=== PATIENT | female | born 1990 | race Caucasian/White ===

== ENCOUNTER 2016-11-28 13:07 | Emergency (ER) | payer OTHER ==
--- NOTE | 2016-11-28 13:53 | PDOC ---
History of Present Illness - General Chief Complaint: Vaginal Bleeding Stated Complaint: POSSIBLE MISCARRIAGE Time Seen by Provider: 11/28/16 13:47 History Source: Patient Exam Limitations: No Limitations - History of Present Illness Initial Comments: CHIEF COMPLAINT: 26 y/o afebrile female, [id number] with LMP 11/05/[address] c/o heavy vaginal bleeding with clots today. HISTORY OF PRESENT ILLNESS: The patient also admits to lower abdominal discomfort, which is unusual for her menstrual cramps. She denies f/c, n/v/d, CP, SOB, back pain, hematuria, dysuria. The patient admits to having to use 1 super tampon per hour today. Vital signs on arrival are within normal limits. REVIEW OF SYSTEMS: GENERAL/CONSTITUTIONAL: No fever/chills. No weakness. No weight change. HEAD, EYES, EARS, NOSE AND THROAT: No change in vision. No ear pain or discharge. No sore throat. CARDIOVASCULAR: No chest pain or shortness of breath. RESPIRATORY: No cough, wheezing, or hemoptysis. GASTROINTESTINAL: +lower abd pain and heavy vaginal bleeding. No vomiting, diarrhea, constipation. GENITOURINARY: No dysuria, frequency, or change in urination. MUSCULOSKELETAL: No joint or muscle swelling or pain. No neck or back pain. SKIN: No rash or easy bruising. NEUROLOGIC: No headache, vertigo, loss of consciousness, or loss of sensation. PHYSICAL EXAM: GENERAL: The patient is awake, alert, and fully oriented, in no acute distress. SHe is very well appearing, ambulatory, in NAD or obvious discomfort. HEAD: Normal with no signs of trauma. ENT: Pupils equal, round and reactive to light, extraocular movements intact, sclera anicteric, conjunctiva clear. Neck supple. LUNGS: Clear to auscultation bilaterally. Normal excursion. No respiratory distress or use of accessory muscles. CV: RRR, S1/S2, no MRG. Cap refill < 2 sec. ABDOMEN: Soft, non-distended, TTP of suprapubic and right pelvic region. VAGINAL: Minimal red blood in vaginal vault. Right adnexal and CMT tenderness. EXTREMITIES: Normal range of motion, no edema. NEUROLOGICAL: Normal speech, normal gait. CN II-XII grossly intact. PSYCH: Normal mood, normal affect. SKIN: Warm, dry, normal turgor, no rashes or lesions noted. Past History - Past Medical History Allergies/Adverse Reactions: Allergies Allergy/AdvReac Type Severity Reaction Status Date / Time vancomycin Allergy Mild itchy Verified 11/28/16 13:15 nectarine Allergy Uncoded 11/28/16 13:15 Home Medications: Ambulatory Orders Naproxen Sodium [Naproxen Sodium ER] 500 mg PO BID #30 tablet.er 10/06/16 Ondansetron [Zofran *Odt*] 4 mg SL TID #30 od.tablet 10/06/16 Other medical history: DENIES - Surgical History Appendectomy: Yes - Reproductive History (#): 2 Para: 1 - Immunization History Immunization Up to Date: Yes - Psycho/Social/Smoking Cessation Hx Anxiety: No Suicidal Ideation: No Smoking Status: No Smoking History: Never smoked Have you smoked in the past 12 months: No Number of Cigarettes Smoked Daily: 0 Hx Alcohol Use: No Drug/Substance Use Hx: No Substance Use Type: None *Physical Exam - Vital Signs Last Vital Signs Temp Pulse Resp BP Pulse Ox 98 F 94 H 19 105/75 99 11/28/16 13:15 11/28/16 13:15 11/28/16 13:15 11/28/16 13:15 11/28/16 13:15 ED Treatment Course - LABORATORY CBC & Chemistry Diagram: 11/28/16 13:56 11/28/16 13:56 Medical Decision Making - Medical Decision Making A/P: 26 y/o afebrile female with heavy vaginal bleeding today. Plan is as follows: 1. Labs 2. UA/culture 3. beta 4. type and screen 5. Ultrasound beta - negative Labs unremarkable. Transvaginal Ultrasound IMPRESSION: In comparison to a prior exam of 03/15/16 interval development of a complex 4.4cm right ovarian cyst is noted. Correlation with follow up sonography is suggested in approximately 6 weeks to document at least partial resolution. Trace free fluid within the cul-de-sac. No doppler evidence of ovarian torsion. IUD in place. Gave the patient all of her results. Will discharge to home with instructions to have f/u ultrasound in 6 weeks. The patient verbalizes understanding of all instructions, has no further questions and is awaiting discharge. *DC/Admit/Observation/Transfer Diagnosis at time of Disposition: Cyst of ovary Qualifiers: Laterality: right Qualified Code(s): N83.20 - Unspecified ovarian cysts Menorrhagia Qualifiers: Menorrahagia type: with regular cycle Qualified Code(s): N92.0 - Excessive and frequent menstruation with regular cycle - Discharge Dispostion Disposition: HOME Condition at time of disposition: Good - Referrals Referrals: Korin Jaimes [Primary Care Provider] - Anahi Burnett MD [Staff Physician] - (Schedule appointment for follow up ultrasound in 6 weeks) - Patient Instructions Printed Discharge Instructions: DI for Ovarian Cyst, DI for Menorrhagia Additional Instructions: Discharge Instructions: -Take Motrin with food for pain if needed -Follow up either at [facility] or with referred ANTI [employer] W[employer]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 Burnett in 6 weeks for a follow up ultrasound -Return to the ER with any worsening or concerning symptoms.
[2016-11-28 14:32] LABS: EOSINOPHIL 2.8 % (0-4.5); MCH 27.4 pg (25.7-33.7); MCHC 32.7 g/dl (32.0-36.0); MEAN CELL VOLUME 83.9 fl (80-96); MEAN PLT VOLUME 10.8 fl (7.5-11.1); NEUTROPHILS 76.2 % (42.8-82.8); PLATELET COUNT 100 K/MM3 (134-434)
[2016-11-28 14:37] LABS: URINE APPEARANCE CLEAR; URINE BILIRUBIN NEGATIVE (NEGATIVE); URINE COLOR LTYELLOW; URINE GLUCOSE (UA) NEGATIVE (NEGATIVE); URINE KETONE NEGATIVE (NEGATIVE); URINE LEUK ESTERASE NEGATIVE (NEGATIVE); URINE NITRITE NEGATIVE (NEGATIVE); URINE PROTEIN NEGATIVE (NEGATIVE); URINE UROBILINOGEN 2.0 E.U/dl E.U./dl (0.2-1.0)
[2016-11-28 14:42] LABS: URINE BLOOD 1+ (NEGATIVE)
[2016-11-28 14:45] LABS: URINE MUCUS RARE; URINE RBC <1 /hpf (0-3); URINE WBC <1 /hpf (3-5)
[2016-11-28 14:59] LABS: ALBUMIN 4.1 g/dl (3.4-5.0); ANION GAP 9 (8-16); BILIRUBIN,TOTAL 0.4 mg/dL (0.2-1.0); CALCIUM 9.1 mg/dL (8.5-10.1); CO2 28 mmol/L (21-32); CREATININE 0.9 mg/dL (0.55-1.02); GLUCOSE,RANDOM 86 mg/dL (74-106); SGOT/AST 18 U/L (15-37); SGPT/ALT 15 U/L (12-78); TOT PROT 7.3 g/dl (6.4-8.2)
[2016-11-28 15:01] LABS: ALK PHOS 63 U/L (45-117)
[2016-11-28] MEDS ORDERED: IBUPROFEN 600 MG TABLET (FP) PO ONE (17:12)
[2016-11-28 17:23] VITALS: BP 110/75; PULSE 81; TEMP 98.1
== END 2016-11-28 17:23 | disposition home or self-care (01) ==
LOC: JER 13:07
DX: N92.0 Excessive and frequent menstruation with regular cycle (principal); N83.291 Other ovarian cyst, right side
CPT/HCPCS: 36415; 76830-TC; 80053; 81003; 81015; 84702; 85025; 86850; 86900; 86901; 87086; 99283-25

== ENCOUNTER 2017-01-11 12:27 | Emergency (ER) | payer OTHER ==
[2017-01-11 12:37] VITALS: BP 100/70; PULSE 111; TEMP 99.1
[2017-01-11] MEDS ORDERED: ALBUTEROL SO4 0.083% IH SOL 2.5 MG/3 ML VIAL.NEB. NEB ONE ×2 (13:09→13:12)
[2017-01-11] MEDS ORDERED: IBUPROFEN 400 MG TABLET (FP) PO ONE ×2 (13:09→13:12)
--- NOTE | 2017-01-11 13:33 | PDOC ---
History of Present Illness - General Chief Complaint: Cold Symptoms Stated Complaint: COUGH, CONGESTED, MIGRAINES Time Seen by Provider: 01/11/17 12:47 History Source: Patient Exam Limitations: No Limitations - History of Present Illness Initial Comments: 01/11/17 13:26 26 yr female with c/o sore throat cough productive phlegm, right ear pain for 3 days. no fever or chills. non smoker, history of asthma. Past History - Past Medical History Allergies/Adverse Reactions: Allergies Allergy/AdvReac Type Severity Reaction Status Date / Time vancomycin Allergy Mild itchy Verified 01/11/17 12:33 nectarine Allergy Uncoded 01/11/17 12:33 Home Medications: Ambulatory Orders Albuterol Sulfate [Proair Respiclick] 90 mcg IH Q4HWA #1 aer.[email or web address] 01/11/17 Azithromycin [Zithromax 250mg Tablets -] 250 mg PO UTDICT #6 tab 01/11/17 Other medical history: none - Surgical History Appendectomy: Yes - Reproductive History (#): 2 Para: 1 Cervical CA: No Dysfunctional Uterine Bleeding: No Ectopic : No Endometrial CA: No Polycystic Ovaries: No Therapeutic (s) & number: Yes (1) Tubal Ligation: No Spontaneous : 1 - Immunization History Immunization Up to Date: Yes - Psycho/Social/Smoking Cessation Hx Anxiety: No Suicidal Ideation: No Smoking Status: No Smoking History: Never smoked Have you smoked in the past 12 months: No Number of Cigarettes Smoked Daily: 0 Information on smoking cessation initiated: No Hx Alcohol Use: No Drug/Substance Use Hx: No Substance Use Type: None Respiratory Specific PMHX - Complaint Specific PMHX Angina: No Bronchitis: No Pneumonia: No Pulmonary Embolus: No TB (Tuberculosis): No Review of Systems - Review of Systems Able to Perform ROS?: Yes Is the patient limited [place] proficient: No Constitutional: Yes: Symptoms Reported HEENTM: Yes: Symptoms Reported Respiratory: Yes: Symptoms reported *Physical Exam - Vital Signs Last Vital Signs Temp Pulse Resp BP Pulse Ox 99.1 F 111 H 18 100/70 100 01/11/17 12:34 01/11/17 12:34 01/11/17 12:34 01/11/17 12:34 01/11/17 12:34 - Physical Exam General Appearance: Yes: Nourished, Appropriately Dressed HEENT: positive: EOMI, SAMUEL, TMs Normal, Pharynx Normal, Pharyngeal Erythema, TM Bulging (right). negative: Tonsillar Exudate, Tonsillar Erythema Neck: positive: Supple. negative: Lymphadenopathy (R), Lymphadenopathy (L) Respiratory/Chest: positive: Lungs Clear, Normal Breath Sounds, Wheezing (mild exp ) Cardiovascular: positive: Regular Rhythm, Regular Rate Gastrointestinal/Abdominal: positive: Normal Bowel Sounds, Soft Musculoskeletal: positive: Normal Inspection Extremity: positive: Normal Capillary Refill, Normal Inspection, Normal Range of Motion Integumentary: positive: Normal Color, Dry, Warm Neurologic: positive: Fully Oriented, Alert, Normal Mood/Affect, Normal Response , Motor Strength 5/5 Medical Decision Making - Medical Decision Making 01/11/17 13:28 cc: sore throat, cough no fever speaking clear sentences will r/o strep albuterol neb *DC/Admit/Observation/Transfer Diagnosis at time of Disposition: Acute upper respiratory infection - Discharge Dispostion Disposition: HOME Condition at time of disposition: Improved - Prescriptions Prescriptions: Albuterol Sulfate [Proair Respiclick] 90 mcg IH Q4HWA #1 aer.[email or web address] Azithromycin [Zithromax 250mg Tablets -] 250 mg PO UTDICT #6 tab - Patient Instructions Additional Instructions: drink pleanty of fluids increase vitamin c and zinc intake to boost immune system take the antibiotics as prescribed use inhaler as directed take motrin for pain or fever return to ER for any worsening symptoms
== END 2017-01-11 13:45 | disposition home or self-care (01) ==
LOC: JERFT 12:27
PROC: 3E0F7GC Introduction of Other Therapeutic Substance into Respiratory Tract, Via Natural or Artificial Opening (ICD-10-PCS; principal; 2017-01-11)
DX: J11.1 Influenza due to unidentified influenza virus with other respiratory manifestations (principal)
CPT/HCPCS: 84703; 87070; 87430; 94640; 99281-25

== ENCOUNTER 2017-05-20 12:12 | Emergency (ER) | payer OTHER ==
[2017-05-20 12:40] VITALS: TEMP 98.7; BMI 20.5
--- NOTE | 2017-05-20 12:48 | PDOC ---
History of Present Illness - History of Present Illness Initial Comments: 05/20/17 12:47 Ms. Guerrero is a 26 year old female with a significant past medical history of L ovarian cyst who presents to the emergency department with a 1 hour history of extreme LLQ pain that migrated to the right and eventually was her entire lower abdomen. She reports that the pain had a very sudden onset at 1120 this AM and that it left her sweating with shirt soaked. She has never had pain like this before. LMP May 03 for 2 days (usually is 4). The patient denies chest pain, shortness of breath, headache and dizziness. Denies fever, chills, nausea, vomit, diarrhea and constipation. Denies dysuria, frequency, urgency and hematuria. Allergies: Vancomycin Past surgical history:Appendectomy, facial plastic surgery Social history: Social alcohol PMD - None 05/20/17 15:48 <Seun Zavala - Last Filed: 05/20/17 18:23> <Celine Culp - Last Filed: 05/21/17 11:59> - General Chief Complaint: Pain, Acute Stated Complaint: LOWER ABDOMINAL PAIN Time Seen by Provider: 05/20/17 12:46 Past History - Surgical History Appendectomy: Yes - Reproductive History (#): 2 Para: 1 Cervical CA: No Dysfunctional Uterine Bleeding: No Ectopic : No Endometrial CA: No Polycystic Ovaries: No Therapeutic (s) & number: Yes (1) Tubal Ligation: No Spontaneous : 1 - Immunization History Immunization Up to Date: Yes - Psycho/Social/Smoking Cessation Hx Anxiety: No Suicidal Ideation: No Smoking Status: No Smoking History: Never smoked Have you smoked in the past 12 months: No Number of Cigarettes Smoked Daily: 0 Information on smoking cessation initiated: No Hx Alcohol Use: No Drug/Substance Use Hx: No Substance Use Type: None <Seun Zavala - Last Filed: 05/20/17 18:23> <Celine Culp - Last Filed: 05/21/17 11:59> - Past Medical History Allergies/Adverse Reactions: Allergies Allergy/AdvReac Type Severity Reaction Status Date / Time vancomycin Allergy Mild itchy Verified 05/20/17 12:48 nectarine Allergy Uncoded 05/20/17 12:48 Home Medications: Ambulatory Orders Ibuprofen [Motrin -] 600 mg PO PRN #21 tablet 05/20/17 Oxycodone HCl/Acetaminophen [Percocet 5-325 mg Tablet] 1 tab PO Q6H #12 tablet MDD 4 tabs 05/20/17 Review of Systems - Review of Systems Comments:: 05/20/17 12:47 GENERAL/CONSTITUTIONAL: No fever or chills. No weakness. HEAD, EYES, EARS, NOSE AND THROAT: No change in vision. No ear pain or discharge. No sore throat. CARDIOVASCULAR: No chest pain or shortness of breath RESPIRATORY: No cough, wheezing, or hemoptysis. GASTROINTESTINAL: No nausea, vomiting, diarrhea or constipation. GENITOURINARY: +Extreme left lower abdominal pain during her pain episode. Is now painful bilaterally with movement. No dysuria, frequency, or change in urination. MUSCULOSKELETAL: No joint or muscle swelling or pain. No neck or back pain. SKIN: No rash NEUROLOGIC: No headache, vertigo, loss of consciousness, or change in strength/ sensation. ENDOCRINE: No increased thirst. No abnormal weight change HEMATOLOGIC/LYMPHATIC: No anemia, easy bleeding, or history of blood clots. ALLERGIC/IMMUNOLOGIC: No hives or skin allergy. 05/20/17 15:52 <Seun Zavala - Last Filed: 05/20/17 18:23> *Physical Exam - Vital Signs Last Vital Signs Temp Pulse Resp BP Pulse Ox 98.7 F 75 18 107/69 98 05/20/17 12:36 05/20/17 12:36 05/20/17 12:36 05/20/17 12:36 05/20/17 12:36 - Physical Exam Comments: 05/20/17 12:48 GENERAL: Awake, alert, and fully oriented, in no acute distress HEAD: No signs of trauma, normocephalic, atraumatic EYES: PERRLA, EOMI, sclera anicteric, conjunctiva clear ENT: Auricles normal inspection, hearing grossly normal, nares patent, oropharynx clear without exudates. Moist mucosa NECK: Normal ROM, supple, no lymphadenopathy, JVD, or masses LUNGS: No distress, speaks full sentences, clear to auscultation bilaterally HEART: Regular rate and rhythm, normal S1 and S2, no murmurs, rubs or gallops, peripheral pulses normal and equal bilaterally. ABDOMEN: +Tender accross entire lower abdomen. normoactive bowel sounds. No guarding, no rebound. No masses EXTREMITIES: Normal inspection, Normal range of motion, no edema. No clubbing or cyanosis. NEUROLOGICAL: Cranial nerves II through XII grossly intact. Normal speech, normal gait, no focal sensorimotor deficits SKIN: Warm, Dry, normal turgor, no rashes or lesions noted. 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 No masses noted, some tenderness on R side. 05/20/17 15:53 <Seun Zavala - Last Filed: 05/20/17 18:23> - Vital Signs Last Vital Signs Temp Pulse Resp BP Pulse Ox 98.7 F 80 18 128/70 97 05/20/17 12:36 05/20/17 16:30 05/20/17 16:30 05/20/17 16:30 05/20/17 16:30 <Celine Culp - Last Filed: 05/21/17 11:59> ED Treatment Course - LABORATORY CBC & Chemistry Diagram: 05/20/17 13:25 05/20/17 13:25 <Seun Zavala - Last Filed: 05/20/17 18:23> - LABORATORY CBC & Chemistry Diagram: 05/20/17 13:25 05/20/17 13:25 - ADDITIONAL ORDERS Additional order review: 05/20/17 13:25 RBC 4.67 MCV 86.1 MCHC 32.4 RDW 13.8 MPV 11.3 H Neutrophils % 69.9 Lymphocytes % 17.0 D Monocytes % 6.7 Eosinophils % 5.4 H D Basophils % 1.0 - RADIOLOGY Radiology Studies Ordered: Category Date Time Status TRANSVAGINAL ULTRASOUND US [US] Stat Ultrasound 05/20/17 14:52 Completed - Medications Given in the ED: ED Medications Discontinued Medications Generic Name Dose Route Start Last Admin Trade Name Freq PRN Reason Stop Dose Admin Morphine Sulfate 2 mg 05/20/17 13:14 05/20/17 13:29 Morphine Injection - IVPUSH 05/20/17 13:15 2 mg ONCE ONE Administration <Celine Culp - Last Filed: 05/21/17 11:59> Medical Decision Making - Medical Decision Making 05/20/17 15:54 Ms. Guerrero presents by ambulance for an acute pain attack that she says started exactly at 1120. She is currently resting more comfortably but still with some pain. test negative. Urine cloudy with blood and urobilinogen. New complex L ovarian cyst + evidence of ruptured cyst visualized on transvaginal ultrasound. Believe this to be cause of new onset pain. Will suggest f/u with outpatient OBGYN. 05/20/17 15:55 Laboratory Results - last 24 hr 05/20/17 05/20/17 05/20/17 13:25 13:25 13:25 WBC 5.3 D RBC 4.67 Hgb 13.0 Hct 40.2 MCV 86.1 MCH 27.9 MCHC 32.4 RDW 13.8 Plt Count 101 L MPV 11.3 H Neutrophils % 69.9 Lymphocytes % 17.0 D Monocytes % 6.7 Eosinophils % 5.4 H D Basophils % 1.0 Sodium 141 Potassium 3.7 Chloride 105 Carbon Dioxide 29 Anion Gap 7 L BUN 12 Creatinine 0.8 Creat Clearance w eGFR > 60 Random Glucose 82 Calcium 8.8 Total Bilirubin 1.1 H D AST 13 L D ALT 19 D Alkaline Phosphatase 58 Total Protein 6.5 Albumin 3.7 Lipase 54 L Urine Color Yellow Urine Appearance Slcloudy Urine pH 6.0 Urine Protein 1+ H Urine Glucose (UA) Negative Urine Ketones Negative Urine Blood 1+ H Urine Nitrite Negative Urine Bilirubin Negative Urine Urobilinogen 4.0 e.u/dl H Ur Leukocyte Esterase Negative Urine RBC 2 Urine WBC 2 Ur Epithelial Cells Few Hyaline Casts 7 Urine Mucus Moderate Urine HCG, Qual Negative <Seun Zavala - Last Filed: 05/20/17 18:23> *DC/Admit/Observation/Transfer - Attestations Physician Attestion: 05/20/17 18:32 I, Dr. Seun Zavala, attest that this document has been prepared under my direction and personally reviewed by me in its entirety. I further attest, that it accurately reflects all work, treatment, procedures and medical decision -making performed by me. <Seun Zavala - Last Filed: 05/20/17 18:23> <Celine Culp - Last Filed: 05/21/17 11:59> Diagnosis at time of Disposition: Ruptured ovarian cyst - Discharge Dispostion Disposition: HOME - Prescriptions Prescriptions: Ibuprofen [Motrin -] 600 mg PO PRN #21 tablet Oxycodone HCl/Acetaminophen [Percocet 5-325 mg Tablet] 1 tab PO Q6H #12 tablet MDD 4 tabs - Referrals Referrals: Kenny Mccann MD [Staff Physician] - - Patient Instructions Printed Discharge Instructions: DI for Ovarian Cyst Additional Instructions: Please return if any new onset pain, fever, weakness, loss of color, or other concerning symptoms.
--- NOTE | 2017-05-20 12:58 | PDOC ---
Attending Attestation - Resident Resident Name: Seun Zavala - ED Attending Attestation I have performed the following: I have examined & evaluated the patient, The case was reviewed & discussed with the resident, I agree w/resident's findings & plan, Exceptions are as noted - HPI HPI: 26 yo F history prior ovarian cyst presents with abrupt onset of lower abdominal pain at 11:20 am today. She took motrin without much relief. Pain is sharp, lower abdominal, nonradiating. No associated N/V/D, dysuria, vaginal discharge. LMP approximately 2 weeks ago, was a light period lasting 2 days. - Physicial Exam PE: GENERAL: Awake, alert, and fully oriented, appears uncomfortable HEAD: No signs of trauma EYES: PERRLA, EOMI, sclera anicteric, conjunctiva clear ENT: Auricles normal inspection, hearing grossly normal, nares patent, oropharynx clear without exudates. Moist mucosa NECK: Normal ROM, supple, no lymphadenopathy, JVD, or masses LUNGS: Breath sounds equal, clear to auscultation bilaterally. No wheezes, and no crackles HEART: Regular rate and rhythm, normal S1 and S2, no murmurs, rubs or gallops ABDOMEN: Soft, +significant RLQ and LLQ tenderness, R>L. Normoactive bowel sounds. No rebound. No masses EXTREMITIES: Normal range of motion, no edema. No clubbing or cyanosis. No cords, erythema, or tenderness NEUROLOGICAL: Cranial nerves II through XII grossly intact. Normal speech, normal gait SKIN: Warm, Dry, normal turgor, no rashes or lesions noted. - Medical Decision Making Pt with abrupt onset severe lower abdominal pain without any other associated symtoms. She is approximately 2 weeks into her cycle, suggesting possible ovarian cyst vs torsion. Will obtain labs, likely sono.
[2017-05-20] MEDS ORDERED: morphine CARPU-JECT 2 MG/1 ML DISP.SYRIN IVPUSH ONE (13:14)
[2017-05-20] MEDS ORDERED: morphine CARPU-JECT 4 MG/1 ML DISP.SYRIN ONE (13:25)
[2017-05-20 13:57] LABS: EOSINOPHIL 5.4 % (0-4.5); MCH 27.9 pg (25.7-33.7); MCHC 32.4 g/dl (32.0-36.0); MEAN CELL VOLUME 86.1 fl (80-96); MEAN PLT VOLUME 11.3 fl (7.5-11.1); NEUTROPHILS 69.9 % (42.8-82.8); PLATELET COUNT 101 K/MM3 (134-434); RDW 13.8 % (11.6-15.6); WHITE BLOOD COUNT 5.3 K/mm3 (4.0-10.0)
[2017-05-20 14:01] LABS: URINE APPEARANCE SLCLOUDY; URINE BILIRUBIN NEGATIVE (NEGATIVE); URINE BLOOD 1+ (NEGATIVE); URINE COLOR YELLOW; URINE GLUCOSE (UA) NEGATIVE (NEGATIVE); URINE KETONE NEGATIVE (NEGATIVE); URINE LEUK ESTERASE NEGATIVE (NEGATIVE); URINE NITRITE NEGATIVE (NEGATIVE); URINE UROBILINOGEN 4.0 E.U/dl mg/dL (0.2-1.0)
[2017-05-20 14:09] LABS: URINE PROTEIN 1+ (NEGATIVE)
[2017-05-20 14:32] LABS: URINE HYALINE CAST 7 /lpf; URINE MUCUS MODERATE; URINE RBC 2 /hpf (0-3); URINE WBC 2 /hpf (3-5)
[2017-05-20 14:38] LABS: ALBUMIN 3.7 g/dl (3.4-5.0); ANION GAP 7 (8-16); CALCIUM 8.8 mg/dL (8.5-10.1); CO2 29 mmol/L (21-32); GLUCOSE,RANDOM 82 mg/dL (74-106)
[2017-05-20 14:45] LABS: ALK PHOS 58 U/L (45-117); BILIRUBIN,TOTAL 1.1 mg/dL (0.2-1.0); CREATININE 0.8 mg/dL (0.55-1.02); SGOT/AST 13 U/L (15-37); SGPT/ALT 19 U/L (12-78); TOT PROT 6.5 g/dl (6.4-8.2)
[2017-05-20 16:31] VITALS: BP 128/70; PULSE 80
== END 2017-05-20 18:58 | disposition home or self-care (01) ==
LOC: JER 12:12
PROC: 3E033NZ Introduction of Analgesics, Hypnotics, Sedatives into Peripheral Vein, Percutaneous Approach (ICD-10-PCS; principal; 2017-05-20)
DX: N83.292 Other ovarian cyst, left side (principal); Z88.1 Allergy status to other antibiotic agents; Z91.018 Allergy to other foods
CPT/HCPCS: 36415; 76830-TC; 80053; 81003; 81015; 83690; 84703; 85025; 87491; 87591; 96374; 99283-25

== ENCOUNTER 2018-09-18 08:40 | Emergency (ER) | payer OTHER ==
[2018-09-18 09:06] VITALS: BMI 19.1
[2018-09-18] MEDS ORDERED: SODIUM CHLORIDE 0.9% 1000 ML INFUS.BAG IV ONE (09:17)
[2018-09-18 09:33] LABS: BASO % 0.4 % (0-2.0); EOS % 1.8 % (0-4.5); HEMATOCRIT 38.4 % (32.4-45.2); HEMOGLOBIN 12.3 GM/dL (10.7-15.3); LYMPH % 10.1 % (8-40); MCH 27.1 pg (25.7-33.7); MEAN PLT VOLUME 11.1 fl (7.5-11.1); MONO % 7.1 % (3.8-10.2); NEUT % 80.6 % (42.8-82.8); PLATELET COUNT 77 K/MM3 (134-434); RBC 4.52 M/mm3 (3.60-5.2); RDW 13.1 % (11.6-15.6); WHITE BLOOD COUNT 6.4 K/mm3 (4.0-10.0)
--- NOTE | 2018-09-18 09:36 | PDOC ---
Attending Attestation - HPI HPI: 09/18/18 11:12 CC: Syncope HPI: The patient is a 27 year old female, with a significant past medical history of ovarian cysts, who presents to the emergency department s/p syncope. As per patient, last night while sleeping she was awoken from her sleep with RLQ pain. She notes throughout the day she has been feeling nausea and pain. She notes the last time she had a similar episode was when her ovarian cyst ruptured. She denies hitting her head or any head/neck trauma. Allergies: Vancomycin, nectarine Social history: Nonsmoker. Denies EtOH use and recreational drug use. Primary Care Physician: Dr. Malhotra - Physicial Exam PE: 09/18/18 11:12 Vitals: Triage vital signs reviewed General Appearance: No acute distress, well nourished, well developed Head: Atraumatic Neck: Supple; No nuchal rigidity Chest Wall: Nontender Cardiac: Regular rate and rhythm, no murmurs, no rubs, no gallops Lungs: Clear to auscultation bilateral, good air movement bilaterally +Abdomen: RLQ tenderness. Soft, nondistended, normal bowel sounds Genitourinary: Refer to resident exam. Rectal: Exam deferred Extremities: Full range of motion to all extremities, no cyanosis, clubbing, or edema Skin: Warm and dry, no rashes or lesions, no rash, no petechiae Neuro: AOX3; Cranial Nerves 2-12 grossly intact, Strength intact to all extremities, Sensation intact to all extremities Psych: Normal mood, normal affect <Laury Bales - Last Filed: 09/18/18 11:11> - Resident Resident Name: Emiliano Pahn - ED Attending Attestation I have performed the following: I have examined & evaluated the patient, The case was reviewed & discussed with the resident, I agree w/resident's findings & plan, Exceptions are as noted - Medical Decision Making 09/18/18 14:50 Well-appearing no apparent distress history examination consistent with vasovagal syncope Patient was experiencing right lower quadrant discomfort last night intermittent comes and goes became worse associated with nausea while standing walking her son to school then began to experience lightheadedness blurry vision and syncopized. She was caught and eased to the ground there was no head trauma Here in the emergency department patient had mild right lower quadrant tenderness to palpation her pelvics exam demonstrated right adnexal tenderness to palpation and she is status post an appendectomy She does have a history of ovarian cysts a transvaginal ultrasound was ordered which demonstrated a ruptured left ovarian cyst. History and examination given this information is consistent with vagal reaction to pain from ruptured ovarian cyst. Status post Toradol patient feels much better. Patient will follow up with her CORE SETTER this week. Findings, need for follow-up and strict return instructions discussed with patient. <Forest Foley - Last Filed: 09/18/18 14:59> Attestations - Attestations 09/18/18 11:13 Documentation prepared by Laury Bales, acting as emergency medical service coordinator for Forest Foley MD. <Laury Bales - Last Filed: 09/18/18 11:11>
--- NOTE | 2018-09-18 09:59 | PDOC ---
History of Present Illness <Forest Foley - Last Filed: 09/18/18 13:31> - General History Source: Patient Exam Limitations: No Limitations - History of Present Illness Initial Comments: 09/18/18 09:51 27 yo F with a hx of anemia presents to the ED s/p syncopal event at approximately 8am. She states she walked up approximately 1 block to take her son to the bus stop. There, she felt nauseous, had 4x dry heaving 09/18/18 10:01 <Emiliano Phan - Last Filed: 09/18/18 13:49> - General Chief Complaint: Syncope/Near Syncope Stated Complaint: Syncope/Near Syncope Time Seen by Provider: 09/18/18 09:16 Past History <Forest Foley - Last Filed: 09/18/18 13:31> - Past Medical History COPD: No - Surgical History Appendectomy: Yes - Reproductive History (#): 2 Para: 1 Cervical CA: No Dysfunctional Uterine Bleeding: No Ectopic : No Endometrial CA: No Polycystic Ovaries: No Therapeutic (s) & number: Yes (1) Tubal Ligation: No Spontaneous : 1 - Immunization History Immunization Up to Date: Yes - Suicide/Smoking/Psychosocial Hx Smoking Status: No Smoking History: Never smoked Have you smoked in the past 12 months: No Number of Cigarettes Smoked Daily: 0 Information on smoking cessation initiated: No Hx Alcohol Use: No Drug/Substance Use Hx: No Substance Use Type: None <Emiliano Phan - Last Filed: 09/18/18 13:49> - Past Medical History Allergies/Adverse Reactions: Allergies Allergy/AdvReac Type Severity Reaction Status Date / Time vancomycin Allergy Mild itchy Verified 09/18/18 13:22 nectarine Allergy Uncoded 09/18/18 13:22 Home Medications: Ambulatory Orders NK [No Known Home Medication] 09/18/18 Review of Systems - Review of Systems Able to Perform ROS?: Yes <Emiliano Phan - Last Filed: 09/18/18 13:49> *Physical Exam - Vital Signs Last Vital Signs Temp Pulse Resp BP Pulse Ox 61 20 98/65 100 09/18/18 08:55 09/18/18 08:55 09/18/18 08:55 09/18/18 09:27 <Forest Foley - Last Filed: 09/18/18 13:31> - Vital Signs Last Vital Signs Temp Pulse Resp BP Pulse Ox 61 20 98/65 100 09/18/18 08:55 09/18/18 08:55 09/18/18 08:55 09/18/18 09:27 <Emiliano Phan - Last Filed: 09/18/18 13:49> Moderate Sedation - Procedure Monitoring Vital Signs: Procedure Monitoring Vital Signs Temperature Pulse Rate 61 09/18/18 08:55 Respiratory Rate 20 09/18/18 08:55 Blood Pressure 98/65 09/18/18 08:55 O2 Sat by Pulse Oximetry (%) 100 09/18/18 09:27 <Forest Foley - Last Filed: 09/18/18 13:31> - Procedure Monitoring Vital Signs: Procedure Monitoring Vital Signs Temperature Pulse Rate 61 09/18/18 08:55 Respiratory Rate 20 09/18/18 08:55 Blood Pressure 98/65 09/18/18 08:55 O2 Sat by Pulse Oximetry (%) 100 09/18/18 09:27 <Emiliano Phan - Last Filed: 09/18/18 13:49> ED Treatment Course - LABORATORY CBC & Chemistry Diagram: 09/18/18 09:15 09/18/18 09:15 - ADDITIONAL ORDERS Additional order review: Laboratory Results 09/18/18 09/18/18 10:45 09:15 Sodium 141 Potassium 3.9 Chloride 106 Carbon Dioxide 29 Anion Gap 6 L BUN 12 Creatinine 0.9 Creat Clearance w eGFR > 60 Random Glucose 76 Calcium 8.7 Total Bilirubin 0.8 AST 12 L ALT 17 Alkaline Phosphatase 59 Total Protein 7.0 Albumin 4.0 Beta HCG, Quant < 1.0 Urine Color Ltyellow Urine Appearance Clear Urine pH 8.0 D Ur Specific [place] 1.012 Urine Protein Negative Urine Glucose (UA) Negative Urine Ketones Negative Urine Blood Negative Urine Nitrite Negative Urine Bilirubin Negative Urine Urobilinogen 4.0 e.u/dl H Ur Leukocyte Esterase Trace Urine WBC (Auto) 1 Urine RBC (Auto) 1 Ur Epithelial Cells Rare Hyaline Casts 1 Urine Mucus Rare 09/18/18 09:15 RBC 4.52 MCV 85.0 MCHC 32.0 RDW 13.1 MPV 11.1 Neutrophils % 80.6 Lymphocytes % 10.1 D Monocytes % 7.1 Eosinophils % 1.8 Basophils % 0.4 - Medications Given in the ED: ED Medications Discontinued Medications Generic Name Dose Route Start Last Admin Trade Name Freq PRN Reason Stop Dose Admin Sodium Chloride 1,000 ml 09/18/18 09:17 09/18/18 09:30 Normal Saline - IV 09/18/18 09:18 1,000 ml ONCE ONE Administration <Forest Foley - Last Filed: 09/18/18 13:31> - LABORATORY CBC & Chemistry Diagram: 09/18/18 09:15 09/18/18 09:15 - ADDITIONAL ORDERS Additional order review: 09/18/18 09:15 RBC 4.52 MCV 85.0 MCHC 32.0 RDW 13.1 MPV 11.1 Neutrophils % 80.6 Lymphocytes % 10.1 D Monocytes % 7.1 Eosinophils % 1.8 Basophils % 0.4 - Medications Given in the ED: ED Medications Discontinued Medications Generic Name Dose Route Start Last Admin Trade Name Freq PRN Reason Stop Dose Admin Sodium Chloride 1,000 ml 09/18/18 09:17 09/18/18 09:30 Normal Saline - IV 09/18/18 09:18 1,000 ml ONCE ONE Administration <Emiliano Phan - Last Filed: 09/18/18 13:49> *DC/Admit/Observation/Transfer - Discharge Dispostion Decision to Admit order: No <Forest Foley - Last Filed: 09/18/18 13:31> <Emiliano Phan - Last Filed: 09/18/18 13:49> Diagnosis at time of Disposition: Vaso vagal episode Ovarian cyst Qualifiers: Laterality: left Qualified Code(s): N83.202 - Unspecified ovarian cyst, left side - Discharge Dispostion Disposition: HOME - Referrals Referrals: Arturo Malhotra [Primary Care Provider] - - Patient Instructions Printed Discharge Instructions: DI for Syncope in Adults (Fainting) Additional Instructions: Take 2 tabs Aleve twice a day. Follow-up with your [facility] this week. Drink plenty fluids. Return to ED for any severe worsening symptoms or for any concerns. - Post Discharge Activity Forms/Work/School Notes: Back to Work
[2018-09-18 10:01] LABS: ALK PHOS 59 U/L (45-117); ANION GAP 6 MMOL/L (8-16); BILIRUBIN,TOTAL 0.8 mg/dL (0.2-1); BLOOD UREA NITROGEN 12 mg/dL (7-18); CALCIUM 8.7 mg/dL (8.5-10.1); CHLORIDE 106 mmol/L (98-107); CO2 29 mmol/L (21-32); CREATININE 0.9 mg/dL (0.55-1.3); GLUCOSE,RANDOM 76 mg/dL (74-106); POTASSIUM 3.9 mmol/L (3.5-5.1); SGOT/AST 12 U/L (15-37); SGPT/ALT 17 U/L (13-61); SODIUM 141 mmol/L (136-145)
--- NOTE | 2018-09-18 11:08 | EKG ---
Test Reason : Blood Pressure : / mmHG Vent. Rate : 067 BPM Atrial Rate : 067 BPM P-R Int : 138 ms QRS Dur : 076 ms QT Int : 404 ms P-R-T Axes : 069 070 065 degrees QTc Int : 426 ms NORMAL SINUS RHYTHM NORMAL ECG WHEN COMPARED WITH ECG OF 09-FEB-2014 13:03, T WAVE VARIATION Confirmed by WILLIAM HERNÁNDEZ MD ([id number]) on 09/18/2018 11:07:29 AM Referred By: Confirmed By:WILLIAM HERNÁNDEZ MD
[2018-09-18 11:12] LABS: URINE APPEARANCE CLEAR; URINE BILIRUBIN NEGATIVE (<2.0 mg/dL); URINE COLOR LTYELLOW; URINE GLUCOSE (UA) NEGATIVE (NEGATIVE); URINE KETONE NEGATIVE (NEGATIVE); URINE LEUK ESTERASE TRACE (NEGATIVE); URINE NITRITE NEGATIVE (NEGATIVE); URINE PROTEIN NEGATIVE (NEGATIVE); URINE UROBILINOGEN 4.0 E.U/dl mg/dL (0.2-1.0)
[2018-09-18 11:36] LABS: EPI CELLS RARE /HPF (FEW); URINE HYALINE CAST 1 /lpf; URINE MUCUS RARE
[2018-09-18] MEDS ORDERED: KETOROLAC TROMETHAMINE 30 MG/1 ML VIAL IVPUSH ONE (13:30)
[2018-09-18] MEDS ORDERED: KETOROLAC TROMETHAMINE 30 MG/1 ML VIAL ONE (13:32)
[2018-09-18 13:34] VITALS: BP 124/61; PULSE 72
== END 2018-09-18 13:34 | disposition home or self-care (01) ==
LOC: JER 08:40
PROC: 3E0337Z Introduction of Electrolytic and Water Balance Substance into Peripheral Vein, Percutaneous Approach (ICD-10-PCS; principal; 2018-09-18)
PROC: 3E0333Z Introduction of Anti-inflammatory into Peripheral Vein, Percutaneous Approach (ICD-10-PCS; 2018-09-18)
DX: N83.202 Unspecified ovarian cyst, left side (principal); R55 Syncope and collapse
CPT/HCPCS: 36415; 76830-TC; 80053; 81003; 81015; 84702; 85025; 87491; 87591; 87661; 93005; 93010; 96374; 99283-25; J7030

== ENCOUNTER 2018-10-14 17:10 | Inpatient (IN) | payer OTHER ==
--- NOTE | 2018-10-14 21:32 | PDOC ---
History of Present Illness - General History Source: Patient Exam Limitations: No Limitations - History of Present Illness Travel History: No Initial Comments: 10/14/18 21:32 HISTORY OF PRESENT ILLNESS: 28-year-old female past medical history of appendectomy and ovarian cyst who presents emergency Department with left pelvic pain for the past 3 days. Patient also reports having myalgias and decrease in appetite for the past 7 days. Patient reports her pelvic pain is 7/ 10 and feels like "a gassy feeling" and is constant in nature. Patient states she has had similar pelvic pain in the past which resulted in a ruptured ovarian cyst. Most recently approximately one month ago. It was at that time the patient had her last menstrual period. Patient reports having normal bowel movements with her last bowel movement 07/2018 which was a formed brown stool. She denies any vaginal discharge or vaginal bleeding. Patient is sexually active with one male partner having unprotected vaginal intercourse. Patient had negative GC and is Trichomonas testing on 09/18. No recent travel or sick contacts. PAST MEDICAL HISTORY: ovarian cysts SURGICAL HISTORY: appendectomy ALLERGIES: No known drug allergies REVIEW OF SYSTEMS General/Constitutional: Denies fever or chills. Denies weakness, weight change. HEENT: Denies change in vision. Denies ear pain or discharge. Denies sore throat. Cardiovascular: Denies chest pain or shortness of breath. Respiratory: Denies cough, wheezing, or hemoptysis. Gastrointestinal: Denies nausea, vomiting, diarrhea or constipation. Denies rectal bleeding. Genitourinary: Denies dysuria, frequency, or change in urination. left pelvic pain. Musculoskeletal: +myalgias. Denies neck or back pain. Skin and breasts: Denies rash or easy bruising. Neurologic: Denies headache, vertigo, loss of consciousness, or loss of sensation. Psychiatric: Denies depression or anxiety. Endocrine: Denies increased thirst. Denies abnormal weight change. Hematologic/Lymphatic: Denies anemia, easy bleeding, or history of blood clots. Allergic/Immunologic: Denies hives or skin allergy. Denies latex allergy. PHYSICAL EXAM General Appearance: Well-appearing, appropriately dressed. No apparent distress , no intoxication. Respiratory/Chest: Lungs CTAB. No shortness of breath, chest tenderness, respiratory distress, accessory muscle use. No crackles, rales, rhonchi, stridor , wheezing, dullness Cardiovascular: RRR. S1, S2. No JVD, murmur, bradycardia, tachycardia. Gastrointestinal/Abdominal: Normal bowel sounds. Abdomen soft, non-distended. No tenderness or rebound tenderness. No organomegaly, pulsatile mass, guarding, hernia, hepatomegaly, splenomegaly. Musculoskeletal/Extremities: Normal inspection. FROM of all extremities, normal capillary refill. Pelvis Stable. No CVA tenderness. No tenderness to extremities, pedal edema, swelling, erythema or deformity. <Eric Childs - Last Filed: 10/15/18 04:16> <Guillermina Camacho - Last Filed: 10/15/18 07:55> - General Chief Complaint: Pain Stated Complaint: ABDOMINAL PAIN Time Seen by Provider: 10/14/18 20:51 Past History - Past Medical History COPD: No - Surgical History Appendectomy: Yes - Reproductive History (#): 2 Para: 1 Cervical CA: No Dysfunctional Uterine Bleeding: No Ectopic : No Endometrial CA: No Polycystic Ovaries: No Therapeutic (s) & number: Yes (1) Tubal Ligation: No Spontaneous : 1 - Immunization History Immunization Up to Date: Yes - Suicide/Smoking/Psychosocial Hx Smoking Status: No Smoking History: Never smoked Have you smoked in the past 12 months: No Number of Cigarettes Smoked Daily: 0 Hx Alcohol Use: No Drug/Substance Use Hx: No Substance Use Type: None <Eric Childs - Last Filed: 10/15/18 04:16> <Guillermina Camacho - Last Filed: 10/15/18 07:55> - Past Medical History Allergies/Adverse Reactions: Allergies Allergy/AdvReac Type Severity Reaction Status Date / Time vancomycin Allergy Mild itchy Verified 10/14/18 17:29 nectarine Allergy Uncoded 10/14/18 17:29 Home Medications: Ambulatory Orders NK [No Known Home Medication] 09/18/18 *Physical Exam - Vital Signs Last Vital Signs Temp Pulse Resp BP Pulse Ox 98.1 F 88 18 104/67 99 10/14/18 17:26 10/14/18 17:26 10/14/18 17:26 10/14/18 17:26 10/14/18 17:26 - Physical Exam Female Pelvic Exam: positive: normal external exam, cervical os closed, CMT, adnexal tenderness (left sided) <Eric Childs - Last Filed: 10/15/18 04:16> - Vital Signs Last Vital Signs Temp Pulse Resp BP Pulse Ox 98.6 F 74 18 96/57 L 99 10/15/18 06:00 10/15/18 06:00 10/15/18 06:00 10/15/18 06:00 10/15/18 03:24 <Guillermina Camacho - Last Filed: 10/15/18 07:55> Moderate Sedation - Procedure Monitoring Vital Signs: Procedure Monitoring Vital Signs Temperature 98.1 F 10/14/18 17:26 Pulse Rate 88 10/14/18 17:26 Respiratory Rate 18 10/14/18 17:26 Blood Pressure 104/67 10/14/18 17:26 O2 Sat by Pulse Oximetry (%) 99 10/14/18 17:26 <Eric Childs - Last Filed: 10/15/18 04:16> - Procedure Monitoring Vital Signs: Procedure Monitoring Vital Signs Temperature 98.6 F 10/15/18 06:00 Pulse Rate 74 10/15/18 06:00 Respiratory Rate 18 10/15/18 06:00 Blood Pressure 96/57 L 10/15/18 06:00 O2 Sat by Pulse Oximetry (%) 99 10/15/18 03:24 <Guillermina Camacho - Last Filed: 10/15/18 07:55> Heart Score/ECG Review - ECG Intrepretation Rhythm: Regular Rhythm - [place]: Normal - P and CT Prominent R with upright T in V1 (true posterior LA): No Delta Wave(s) Present: No WPW: No - ST and T Early Repolarization: No Non Specific ST-T Wave changes: No Flattened T Waves: Yes Prolonged Q-T Interval: No - ECG Impressions Normal ECG: Yes Non-specific ST Elevation: No Ischemic Changes: Yes (inferolateral) Bradycardia: No <Guillermina Camacho - Last Filed: 10/15/18 07:55> ED Treatment Course - LABORATORY CBC & Chemistry Diagram: 10/14/18 21:36 10/14/18 21:36 - RADIOLOGY Radiology Studies Ordered: Category Date Time Status TRANSVAGINAL ULTRASOUND US [US] Stat Ultrasound 10/14/18 21:21 Ordered <Eric Childs - Last Filed: 10/15/18 04:16> - LABORATORY CBC & Chemistry Diagram: 10/14/18 21:36 10/14/18 21:36 - ADDITIONAL ORDERS Additional order review: Laboratory Results 10/15/18 10/14/18 10/14/18 01:49 21:58 21:36 Sodium 139 Potassium 3.8 Chloride 106 Carbon Dioxide 28 Anion Gap 5 L BUN 12 Creatinine 0.9 Creat Clearance w eGFR > 60 Random Glucose 106 Lactic Acid 0.6 Calcium 8.6 Total Bilirubin 0.5 AST 14 L ALT 18 Alkaline Phosphatase 63 Total Protein 7.5 Albumin 4.4 Urine Color Yellow Urine Appearance Slcloudy Urine pH 6.0 D Ur Specific [place] 1.020 Urine Protein Negative Urine Glucose (UA) Negative Urine Ketones Negative Urine Blood Negative Urine Nitrite Positive Urine Bilirubin Negative Urine Urobilinogen 4.0 e.u/dl H Ur Leukocyte Esterase Negative Urine WBC (Auto) 13 Urine RBC (Auto) 1 Ur Epithelial Cells Rare Urine Bacteria Few Urine Mucus Many Urine HCG, Qual Negative 10/14/18 21:36 RBC 4.67 MCV 83.4 MCHC 35.1 RDW 13.6 MPV 10.7 Neutrophils % 83.5 H Lymphocytes % 8.4 Monocytes % 5.9 Eosinophils % 1.6 Basophils % 0.6 - Medications Given in the ED: ED Medications Discontinued Medications Generic Name Dose Route Start Last Admin Trade Name Freq PRN Reason Stop Dose Admin Acetaminophen 975 mg 10/15/18 00:51 10/15/18 01:25 Tylenol - PO 10/15/18 00:52 975 mg ONCE ONE Administration Sodium Chloride 1,000 mls @ 1,000 mls/hr 10/15/18 01:02 10/15/18 01:24 Normal Saline - IV 10/15/18 02:01 1,000 mls/hr ASDIR STA Administration Ceftriaxone Sodium 1,000 mg/ 50 mls @ 100 mls/hr 10/15/18 01:30 10/15/18 01: 51 Dextrose IVPB 10/15/18 01:59 100 mls/hr ONCE ONE Administration Phenazopyridine HCl 200 mg 10/15/18 00:51 10/15/18 01:25 Pyridium - PO 10/15/18 00:52 200 mg ONCE ONE Administration <Guillermina Camacho - Last Filed: 10/15/18 07:55> Medical Decision Making - Medical Decision Making 10/15/18 01:12 A/P: 28-year-old woman with left pelvic pain DDx: Ovarian torsion, ovarian cysts, TOA, ectopic , UTI labs, urine including GC, TVUS 10/15/18 01:36 Ultrasound as read by imaging clinical research monitor: Normal uterus, normal homogenous endometrial complex measuring 4.5 mm Normal follicular right ovary with positive arteriovenous Doppler blood flow Normal follicular left ovary with positive arteriovenous Doppler blood flow There is some free fluid in the pelvic cul-de-sac Partially ruptured left ovarian follicles seen on 09/18 is no longer seeing on the current exam. In the interim patient has developed riders and a blood pressure of 63/42. 2 L of IV normal saline to been given. Blood cultures, influenza testing, lactic acid, IV ceftriaxone have been given. Patient to be admitted. 10/15/18 04:[address] Riddle agrees for observation under Dr. Sheldon. <Eric Childs - Last Filed: 10/15/18 04:16> *DC/Admit/Observation/Transfer - Discharge Dispostion Decision to Admit order: Yes <Eric Childs - Last Filed: 10/15/18 04:16> <Guillermina Camacho - Last Filed: 10/15/18 07:55> Diagnosis at time of Disposition: UTI (urinary tract infection) Qualifiers: Urinary tract infection type: acute cystitis Hematuria presence: without hematuria Qualified Code(s): N30.00 - Acute cystitis without hematuria - Discharge Dispostion Condition at time of disposition: Fair
[2018-10-14 21:54] LABS: BASO % 0.6 % (0-2.0); EOS % 1.6 % (0-4.5); HEMATOCRIT 38.9 % (32.4-45.2); HEMOGLOBIN 13.7 GM/dL (10.7-15.3); LYMPH % 8.4 % (8-40); MCH 29.3 pg (25.7-33.7); MCHC 35.1 g/dl (32.0-36.0); MEAN CELL VOLUME 83.4 fl (80-96); MEAN PLT VOLUME 10.7 fl (7.5-11.1); MONO % 5.9 % (3.8-10.2); NEUT % 83.5 % (42.8-82.8); RBC 4.67 M/mm3 (3.60-5.2); RDW 13.6 % (11.6-15.6); WHITE BLOOD COUNT 13.8 K/mm3 (4.0-10.0)
[2018-10-14 22:24] LABS: URINE APPEARANCE SLCLOUDY; URINE BILIRUBIN NEGATIVE (<2.0 mg/dL); URINE COLOR YELLOW; URINE GLUCOSE (UA) NEGATIVE (NEGATIVE); URINE KETONE NEGATIVE (NEGATIVE); URINE LEUK ESTERASE NEGATIVE (NEGATIVE); URINE NITRITE POSITIVE (NEGATIVE); URINE PROTEIN NEGATIVE (NEGATIVE); URINE UROBILINOGEN 4.0 E.U/dl mg/dL (0.2-1.0)
[2018-10-14 22:30] LABS: ALBUMIN 4.4 g/dl (3.4-5.0); ALK PHOS 63 U/L (45-117); ANION GAP 5 MMOL/L (8-16); BILIRUBIN,TOTAL 0.5 mg/dL (0.2-1); BLOOD UREA NITROGEN 12 mg/dL (7-18); CALCIUM 8.6 mg/dL (8.5-10.1); CHLORIDE 106 mmol/L (98-107); CO2 28 mmol/L (21-32); CREATININE 0.9 mg/dL (0.55-1.3); GLUCOSE,RANDOM 106 mg/dL (74-106); POTASSIUM 3.8 mmol/L (3.5-5.1); SGOT/AST 14 U/L (15-37); SGPT/ALT 18 U/L (13-61); SODIUM 139 mmol/L (136-145); TOT PROT 7.5 g/dl (6.4-8.2)
[2018-10-14 22:37] LABS: EPI CELLS RARE /HPF (FEW); URINE BACTERIA FEW /hpf (NONE SEEN); URINE MUCUS MANY
[2018-10-14 23:31] LABS: PLATELET COUNT 103 K/MM3 (134-434); PLATELET ESTIMATE DECREASED
[2018-10-15 00:14] LABS: HCG,QUALITATIVE URINE NEGATIVE
[2018-10-15] MEDS ORDERED: ACETAMINOPHEN 500 MG TABLET (FP) PO ONE (00:51)
[2018-10-15] MEDS ORDERED: PHENAZOPYRIDINE HCL 100 MG TABLET (FP) PO ONE (00:51)
[2018-10-15] MEDS ORDERED: SODIUM CHLORIDE 1,000 ML IV STA (01:02)
[2018-10-15] MEDS ORDERED: PHENAZOPYRIDINE HCL 100 MG TABLET (FP) ONE (01:16)
[2018-10-15] MEDS ORDERED: ACETAMINOPHEN 325 MG TABLET (FP) ONE (01:16)
[2018-10-15] MEDS ORDERED: CEFTRIAXONE 1,000 MG in DEXTROSE 5%-WATER - 50 ML IVPB ONE (01:30)
[2018-10-15] MEDS ORDERED: cefTRIAXone SODIUM 1 GM VIAL ONE (01:45)
--- NOTE | 2018-10-15 03:41 | PN ---
Teaching Attending Note Name of Resident: Rody Riddle ATTENDING PHYSICIAN STATEMENT I saw and evaluated the patient. I reviewed the resident's note and discussed the case with the resident. I agree with the resident's findings and plan as documented. SUBJECTIVE: Seen and examined; please see resident note for further historical information. Ricky, this is a 28 y/o female who has a PMH of chronic thrombocytopenia since at least 2013, ovarian cysts. She presents to the ER with a CC of lower abdominal pain similar to her previous ruptured cysts (last one on 09/18). Due to the pain she went to the ER for further treatment and monitoring. She also has a history of fainting episodes that sound like vasovagal syncope when she is going through stress; she experienced this several times in the ER during the vaginal examination and IV insertion. She felt like she was losing consciousness at the time of discharge from the ER and was found to be hypotensive to the 70/40 range and got 2 bags of saline. Medicine admission requested for observation. 10 sys ROS done and negative aside from HPI PMH and PSH reviewed FH asked and noncontributory Socially patient is a product of incest; she does have anxiety that is untreated. Denies tobacco or drug abuse; social EtOH She is not on control; only medication is multivitamin OBJECTIVE: VS, labs, imaging reviewed NAD, AAO, resting comfortably in bed RRR s1/2 no mgr Lungs CTAB Mild suprapubic pain; ND, +BS CN2-12 wnl, no fnd Anxious mood, appropriate behavior Labs show WBC 13, chronic thrombocytopenia seen again today at 103. UA with positive nitrate Chemistry unremarkable, negative lactate Pending echo EKG unchanged; on telemetry ASSESSMENT AND PLAN: Patient presents with UTI; on discharge she was found to be hypotensive from what appears to be vasovagal syncope 1) Acute Cystitis -Ceftriaxone; followup cultures; if stable tomorrow convert to PO. Uncomplicated. Trend WBC. 2) Syncope, likely vasovagal -BP dropped during DC; known vasovagal-sounding sx at baseline and did have some anxiety earlier in the ER -Check orthostatics -Monitor tele x24 hours, check echo to r/o structural abnormalities. No FNDs so likely can avoid neuroimaging unless neuro exam changes. Place on neuro checks and seizure precautions 3) Ovarian cysts -Not on control; PRN APAP -Followup US; followup with [employer] [facility] -LR@100 -PRN replete -Regular diet -As tolerated. Full Code
--- NOTE | 2018-10-15 03:42 | HP ---
CHIEF COMPLAINT:lightheadedness, suprapubic pain PCP: HISTORY OF PRESENT ILLNESS: 28 yr old woman with hx ovarian cyst (recent ovarian cyst rupture 1 month ago) presented to ED with worsening suprapubic and lower abdominal pain for past few days. 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 it felt similar to when she had her ruptured cyst. She was triaged and found to have a UTI. In the ED felt very lightheaded and found to be hypotensive, systolic 70's with mild improvement after IVF bolus with NS. She has had previous near-synpical episodes during times of stress, she felt like that when having her IV placed, and notes she often has episodes at other times which resolve with time. ER course was notable for: (1) (2) (3) Recent Travel: none PAST MEDICAL HISTORY: anemia, ovarian cysts PAST SURGICAL HISTORY: appendectomy Social History: works in retail and has one healthy son Smoking: denies Alcohol: rare Drugs: denies Family History: unknown, pt was adopted Allergies vancomycin Allergy (Mild, Verified 10/14/18 17:29) itchy nectarine Allergy (Uncoded 10/14/18 17:29) HOME MEDICATIONS: Home Medications Medication Instructions Recorded NK [No Known Home Medication] 09/18/18 REVIEW OF SYSTEMS CONSTITUTIONAL: Absent: fever, chills, diaphoresis, generalized weakness, malaise, loss of appetite, weight change HEENT: Absent: rhinorrhea, nasal congestion, throat pain, throat swelling, difficulty swallowing, mouth swelling, eye pain, visual changes CARDIOVASCULAR: Present: lightheadedness, Absent: chest pain, syncope, palpitations, irregular heart rate, peripheral edema RESPIRATORY: Absent: cough, shortness of breath, dyspnea with exertion, orthopnea, wheezing, stridor, hemoptysis GASTROINTESTINAL: Present: abdominal pain, Absent: abdominal distension, nausea, vomiting, diarrhea, constipation, melena, hematochezia GENITOURINARY: Absent: dysuria, frequency, urgency, hesitancy, hematuria, flank pain, MUSCULOSKELETAL: Absent: myalgia, arthralgia, joint swelling, back pain, neck pain SKIN: Absent: rash, itching, pallor HEMATOLOGIC/IMMUNOLOGIC: Absent: easy bleeding, easy bruising, lymphadenopathy, frequent infections ENDOCRINE: Absent: unexplained weight gain, unexplained weight loss, heat intolerance, cold intolerance NEUROLOGIC: Absent: headache, focal weakness or paresthesias, dizziness, unsteady gait, seizure, mental status changes, bladder or bowel incontinence PHYSICAL EXAMINATION Vital Signs - 24 hr 10/14/18 10/15/18 10/15/18 17:26 01:25 03:24 Temperature 98.1 F Pulse Rate 88 Pulse Rate [ 90 90 Left Radial] Respiratory 18 16 18 Rate Blood Pressure 104/67 Blood Pressure 98/64 93/50 L [Left Arm] O2 Sat by Pulse 99 99 99 Oximetry (%) GENERAL: Awake, alert, and fully oriented, in no acute distress. HEAD: Normal with no signs of trauma. EYES: Pupils equal, round and reactive to light, extraocular movements intact, sclera anicteric, conjunctiva clear. No lid lag. EARS, NOSE, THROAT: Ears normal, nares patent, oropharynx clear without exudates. Moist mucous membranes. NECK: Normal range of motion, supple without lymphadenopathy, JVD, or masses. LUNGS: Breath sounds equal, clear to auscultation bilaterally. No wheezes, and no crackles. No accessory muscle use. HEART: Regular rate and rhythm, normal S1 and S2 without murmur, rub or gallop. ABDOMEN: Soft, +tender in suprapubic and lower abdomen, not distended, normoactive bowel sounds, no guarding, no rebound, no masses. No hepatomegaly or splenomegaly. MUSCULOSKELETAL: Normal range of motion at all joints. No bony deformities or tenderness. No CVA tenderness. UPPER EXTREMITIES: 2+ radial pulses, warm, well-perfused. No cyanosis. No clubbing. No peripheral edema. LOWER EXTREMITIES: 2+ DP pulses, warm, well-perfused. No calf tenderness. No peripheral edema. NEUROLOGICAL: Cranial nerves II-XII intact. Normal speech. Normal gait. PSYCHIATRIC: Cooperative. Good eye contact. Appropriate mood and affect. SKIN: Warm, dry, normal turgor, no rashes or lesions noted, normal capillary refill. Laboratory Results - last 24 hr 10/14/18 10/14/18 10/14/18 21:36 21:36 21:58 WBC 13.8 H RBC 4.67 Hgb 13.7 Hct 38.9 MCV 83.4 MCH 29.3 MCHC 35.1 RDW 13.6 Plt Count 103 L D MPV 10.7 Absolute Neuts (auto) 11.5 H Neutrophils % 83.5 H Lymphocytes % 8.4 Monocytes % 5.9 Eosinophils % 1.6 Basophils % 0.6 Nucleated RBC % 0 Platelet Estimate Decreased Platelet Comment No clumping noted Sodium 139 Potassium 3.8 Chloride 106 Carbon Dioxide 28 Anion Gap 5 L BUN 12 Creatinine 0.9 Creat Clearance w eGFR > 60 Random Glucose 106 Lactic Acid Calcium 8.6 Total Bilirubin 0.5 AST 14 L ALT 18 Alkaline Phosphatase 63 Total Protein 7.5 Albumin 4.4 Urine Color Yellow Urine Appearance Slcloudy Urine pH 6.0 D Ur Specific [place] 1.020 Urine Protein Negative Urine Glucose (UA) Negative Urine Ketones Negative Urine Blood Negative Urine Nitrite Positive Urine Bilirubin Negative Urine Urobilinogen 4.0 e.u/dl H Ur Leukocyte Esterase Negative Urine WBC (Auto) 13 Urine RBC (Auto) 1 Ur Epithelial Cells Rare Urine Bacteria Few Urine Mucus Many Urine HCG, Qual Negative Influenza A (Rapid) Influenza B (Rapid) 10/15/18 10/15/18 01:49 01:49 WBC RBC Hgb Hct MCV MCH MCHC RDW Plt Count MPV Absolute Neuts (auto) Neutrophils % Lymphocytes % Monocytes % Eosinophils % Basophils % Nucleated RBC % Platelet Estimate Platelet Comment Sodium Potassium Chloride Carbon Dioxide Anion Gap BUN Creatinine Creat Clearance w eGFR Random Glucose Lactic Acid 0.6 Calcium Total Bilirubin AST ALT Alkaline Phosphatase Total Protein Albumin Urine Color Urine Appearance Urine pH Ur Specific [place] Urine Protein Urine Glucose (UA) Urine Ketones Urine Blood Urine Nitrite Urine Bilirubin Urine Urobilinogen Ur Leukocyte Esterase Urine WBC (Auto) Urine RBC (Auto) Ur Epithelial Cells Urine Bacteria Urine Mucus Urine HCG, Qual Influenza A (Rapid) Negative Influenza B (Rapid) Negative ASSESSMENT/PLAN: 28 yr old woman with a hx of ovarian cysts presents with suprapubic pain likely due to UTI, being monitored for hypotension. Hypotension, hx of pre-syncope - likely vasovagal in nature, continue IVF hydration - recommend checking orthostatics and echo to r/o cardiac cause of events if symptoms do not improve - monitor on tele to r/o arrythmia - neuro checks #UTI - acute cystitis - started on ceftriaxone, no previous culture hx - Gono/chlamy negative #Ovarian cysts - tranvaginal us as per Ed negative for acute rupture Diet: regular activity: as tolerated, assist due to concern for syncope DVT: scd's, encourge ambulation dispo: if improvement on IVF, and no events on cardiac monitoring, can likely dc on oral abx for cystitis offered HIV and hepatitis testing, pt accepted full code Visit type - Emergency Visit Emergency Visit: Yes ED Registration Date: 10/15/18 Care time: The patient presented to the Emergency Department on the above date and was hospitalized for further evaluation of their emergent condition. - New Patient This patient is new to me today: Yes Date on this admission: 10/15/18 - Critical Care Critical Care patient: No
[2018-10-15] MEDS: SODIUM CHLORIDE 1,000 ML IV SCH (03:52)
--- NOTE | 2018-10-15 11:26 | EKG ---
Test Reason : Blood Pressure : / mmHG Vent. Rate : 084 BPM Atrial Rate : 084 BPM P-R Int : 128 ms QRS Dur : 082 ms QT Int : 398 ms P-R-T Axes : -17 -11 -14 degrees QTc Int : 470 ms NORMAL SINUS RHYTHM WITH SINUS ARRHYTHMIA NONSPECIFIC T WAVE ABNORMALITY PROLONGED QT ABNORMAL ECG WHEN COMPARED WITH ECG OF 18-SEP-2018 09:07, QUESTIONABLE CHANGE IN QRS AXIS NONSPECIFIC T WAVE ABNORMALITY NOW EVIDENT IN ANTERIOR LEADS Confirmed by SAJI VALADEZ MD ([id number]) on 10/15/2018 11:25:44 AM Referred By: Confirmed By:SAJI VALADEZ MD
--- NOTE | 2018-10-15 11:43 | PN ---
Progress Note (short form) - Note Progress Note: Subjective: no fever or chills. feels a little better . had lower abd pain since yesterday with nausea and poor po intake. had similar sx few days ago and came to ER, TV US was done to find ruptured L ovarian follicle. denies flank pain. sexually active , no h/o STDs Objective: Vital Signs: Last Vital Signs Temp Pulse Resp BP Pulse Ox 98.6 F 74 18 96/57 L 99 10/15/18 06:00 10/15/18 06:00 10/15/18 06:00 10/15/18 06:00 10/15/18 03:24 Laboratory Results - last 24 hr 10/14/18 10/14/18 10/14/18 21:36 21:36 21:58 WBC 13.8 H RBC 4.67 Hgb 13.7 Hct 38.9 MCV 83.4 MCH 29.3 MCHC 35.1 RDW 13.6 Plt Count 103 L D MPV 10.7 Absolute Neuts (auto) 11.5 H Neutrophils % 83.5 H Lymphocytes % 8.4 Monocytes % 5.9 Eosinophils % 1.6 Basophils % 0.6 Nucleated RBC % 0 Platelet Estimate Decreased Platelet Comment No clumping noted Sodium 139 Potassium 3.8 Chloride 106 Carbon Dioxide 28 Anion Gap 5 L BUN 12 Creatinine 0.9 Creat Clearance w eGFR > 60 Random Glucose 106 Lactic Acid Calcium 8.6 Total Bilirubin 0.5 AST 14 L ALT 18 Alkaline Phosphatase 63 Total Protein 7.5 Albumin 4.4 Urine Color Yellow Urine Appearance Slcloudy Urine pH 6.0 D Ur Specific [place] 1.020 Urine Protein Negative Urine Glucose (UA) Negative Urine Ketones Negative Urine Blood Negative Urine Nitrite Positive Urine Bilirubin Negative Urine Urobilinogen 4.0 e.u/dl H Ur Leukocyte Esterase Negative Urine WBC (Auto) 13 Urine RBC (Auto) 1 Ur Epithelial Cells Rare Urine Bacteria Few Urine Mucus Many Urine HCG, Qual Negative Influenza A (Rapid) Influenza B (Rapid) 10/15/18 10/15/18 01:49 01:49 WBC RBC Hgb Hct MCV MCH MCHC RDW Plt Count MPV Absolute Neuts (auto) Neutrophils % Lymphocytes % Monocytes % Eosinophils % Basophils % Nucleated RBC % Platelet Estimate Platelet Comment Sodium Potassium Chloride Carbon Dioxide Anion Gap BUN Creatinine Creat Clearance w eGFR Random Glucose Lactic Acid 0.6 Calcium Total Bilirubin AST ALT Alkaline Phosphatase Total Protein Albumin Urine Color Urine Appearance Urine pH Ur Specific [place] Urine Protein Urine Glucose (UA) Urine Ketones Urine Blood Urine Nitrite Urine Bilirubin Urine Urobilinogen Ur Leukocyte Esterase Urine WBC (Auto) Urine RBC (Auto) Ur Epithelial Cells Urine Bacteria Urine Mucus Urine HCG, Qual Influenza A (Rapid) Negative Influenza B (Rapid) Negative Physical Exam: NAD , looks ill. dry MM Cv: RRR Lungs: CTAB ext : no edema Abd: soft, ND, TTP in suprapubic area , RLQ and LLQ Imaging: TV US reviewed this admission and last ER visit . Assessment/Plan: 28 y/o lady wtih no significant PMH who presented with abd pain . she was found to have UTI 1- Complicated UTI: with leukocytosis. - IVF - cont ceftriaxone day 1 - follow urine cx. - No , no ovarian cyst or torsion on US. sx don't go with appendicitis - follow GC testing. Visit type - Emergency Visit Emergency Visit: Yes ED Registration Date: 10/15/18 Care time: The patient presented to the Emergency Department on the above date and was hospitalized for further evaluation of their emergent condition. - New Patient This patient is new to me today: Yes Date on this admission: 10/15/18 - Critical Care Critical Care patient: No
[2018-10-15] MEDS ORDERED: CEFTRIAXONE 1 GM in DEXTROSE 5%-WATER - 50 ML IVPB SCH (22:00)
[2018-10-15] MEDS ORDERED: IBUPROFEN 600 MG TABLET (FP) PO ONE (23:01)
[2018-10-16] MEDS: SODIUM CHLORIDE 1,000 ML IV SCH ×2 (00:23→07:13)
[2018-10-16] MEDS ORDERED: RANITIDINE HCL 150 MG TABLET (FP) PO ONE (00:59)
[2018-10-16 06:18] LABS: BASO % 0.5 % (0-2.0); EOS % 3.3 % (0-4.5); HEMATOCRIT 32.4 % (32.4-45.2); HEMOGLOBIN 10.4 GM/dL (10.7-15.3); LYMPH % 22.7 % (8-40); MCH 27.5 pg (25.7-33.7); MEAN CELL VOLUME 85.9 fl (80-96); MEAN PLT VOLUME 10.7 fl (7.5-11.1); MONO % 10.7 % (3.8-10.2); NEUT % 62.8 % (42.8-82.8); PLATELET COUNT 56 K/MM3 (134-434); RBC 3.77 M/mm3 (3.60-5.2); RDW 13.7 % (11.6-15.6); WHITE BLOOD COUNT 4.5 K/mm3 (4.0-10.0)
[2018-10-16] MEDS ORDERED: PNEUMOCOCCAL 23 VACCINE 0.5 ML VIAL IM ONE (07:47)
[2018-10-16 08:18] VITALS: BP 102/65; PULSE 70; TEMP 98.2
--- NOTE | 2018-10-16 08:29 | PN ---
Teaching Attending Note Name of Resident: Madison Summers ATTENDING PHYSICIAN STATEMENT I saw and evaluated the patient. I reviewed the resident's note and discussed the case with the resident. I agree with the resident's findings and plan as documented. SUBJECTIVE: No fever or chills . feels much better . no abd pain but feels gassy OBJECTIVE: NAD , looks better Cv: RRR Lungs: CTAB Ext: no edema Abd: soft, ND,mild tenderness in suprapubic area. Assessment/Plan: 28 y/o lady wtih no significant PMH who presented with abd pain . she was found to have UTI 1- Complicated UTI: symptomatically improved and WBC normalized. -dc IVF - dc on keflex for 8 more days to complete a course of 10 days - pt told to have her PCP follow GC testing. - will call patient for U cx results if abx adjustment is needed - referred to resident clinic dc home .d/w pt
[2018-10-16 13:15] LABS: HEP.C VIRUS AB <0.1 s/co ratio (0.0-0.9)
--- NOTE | 2018-10-16 14:49 | DS ---
Physical Exam: SUBJECTIVE: Patient seen and examined OBJECTIVE: Vital Signs Period Temp Pulse Resp BP Sys/Gary Pulse Ox Last 24 Hr 97.9 F-98.2 F 68-73 16-18 90-122/58-74 100-100 PHYSICAL EXAM GENERAL: The patient is awake, alert, and fully oriented, in no acute distress. HEAD: Normal with no signs of trauma. EYES: PERRL, extraocular movements intact, sclera anicteric, conjunctiva clear. ENT: Ears normal, nares patent, oropharynx clear without exudates, moist mucous membranes. NECK: Trachea midline, full range of motion, supple. LUNGS: Breath sounds equal, clear to auscultation bilaterally, no wheezes, no crackles, no accessory muscle use. HEART: Regular rate and rhythm, S1, S2 without murmur, rub or gallop. ABDOMEN: Soft, nontender, nondistended, normoactive bowel sounds, no guarding, no rebound, no hepatosplenomegaly, no masses. EXTREMITIES: 2+ pulses, warm, well-perfused, no edema. NEUROLOGICAL: Cranial nerves II through XII grossly intact. Normal speech, gait not observed. PSYCH: Normal mood, normal affect. SKIN: Warm, dry, normal turgor, no rashes or lesions noted. LABS Laboratory Results - last 24 hr 10/15/18 10/15/18 10/16/18 05:30 05:30 05:30 WBC 4.5 RBC 3.77 Hgb 10.4 L Hct 32.4 D MCV 85.9 MCH 27.5 MCHC 32.0 RDW 13.7 Plt Count 56 L D MPV 10.7 Absolute Neuts (auto) 2.8 Neutrophils % 62.8 D Lymphocytes % 22.7 D Monocytes % 10.7 H D Eosinophils % 3.3 D Basophils % 0.5 Nucleated RBC % 0 Hepatitis A IgM Ab Negative Hep Bs Antigen Negative Hep B Core IgM Ab Negative Hepatitis C Antibody <0.1 HIV Genotype Non reactive HOSPITAL COURSE: Date of Admission:10/15/18 28F w/ pmhx of anemia and hx of ruptured ovarian cysts presented to the hospital with complaints of acute suprapubic pain with hypotension and found to have a UTI. Pt was subsequently admitted to [facility] to monitor for hypotension. During her stay, she was treated with Ceftriaxone for the UTI and fortunately had no cardiac events. Transvaginal U/S was done that did not show acute pathology. Urine culture, and gonorrhead/chlamydia work up was done. Pt's symptoms improved throughout the duration of the hospital stay. She was discharged home with instructions to continue taking Keflex for her UTI and to follow up with her PCP within 1 week. Date of Discharge: 10/16/18 Minutes to complete discharge: 36 Discharge Summary Reason For Visit: URINARY TRACT INFECTION Condition: Improved - Instructions Diet, Activity, Other Instructions: You were seen in the hospital for complaints of abdominal pain and syncope. In the hospital, you were found to have a complicated UTI. You were given antibiotics and monitored overnight. Your symptoms improved and you were discharged home. MEDICAL RECOMMENDATIONS Please take Keflex 500 mg every 12 hours for 8 days. You may start taking this medication tomorrow, 10/17/17. CONSULT RECOMMENDATIONS Please follow up with your primary care physician within 1 week. If you experience worsening abdominal pain, persistent pain while urinating/ blood in your urine, fever/chills, nausea/vomiting, chest pain, shortness of breath, please proceed to your nearest emergency room immediately. we have referred you to Dr. Edin ochoa . final urine culture to be followed by us and will call you for any change in antibiotics you were given Dr. Jesus clinic number . please follow please make sure that your doctor follows the results of chlamydia and gonorrhea . they are still pending. Referrals: Markie Jesus MD [Staff Physician] - Disposition: HOME - Home Medications Comprehensive Discharge Medication List: Ambulatory Orders Cephalexin [Keflex] 500 mg PO Q12H #16 capsule 10/16/18 This patient is new to me today: Yes Date on this admission: 10/17/18 Emergency Visit: Yes ED Registration Date: 10/15/18 Care time: The patient presented to the Emergency Department on the above date and was hospitalized for further evaluation of their emergent condition. Critical Care patient: No - Discharge Referral Referred to [facility] Med [facility] No
== END 2018-10-16 08:40 | disposition home or self-care (01) | DRG 463 ==
LOC: JER 17:10 → JERBED 10-15 04:16 → OBSVTOIN 10-15 11:44
PROVIDERS: ADMIT Internal Medicine; ATTEND Internal Medicine
DX: N39.0 Urinary tract infection, site not specified (principal); I95.9 Hypotension, unspecified; R55 Syncope and collapse; N83.02 Follicular cyst of left ovary; D72.829 Elevated white blood cell count, unspecified; D69.6 Thrombocytopenia, unspecified
CPT/HCPCS: 36415; 71045-TC-FY; 76830-TC; 80053; 80074; 81003; 81015; 83605; 84703; 85025; 87040; 87086; 87186; 87389; 87491; 87522; 87591; 87804; 93005; 93010; 99284-25; G0378; J7030

== ENCOUNTER 2021-07-30 10:50 | Emergency (ER) | payer OTHER ==
[2021-07-30 10:55] VITALS: BMI 22.6
[2021-07-30] MEDS ORDERED: ACETAMINOPHEN INJECTION 100 ML IVPB ONE (11:31)
[2021-07-30] MEDS ORDERED: SODIUM CHLORIDE 0.9% 500 ML INFUS.BAG IV ONE ×2 (12:17→14:59)
[2021-07-30] MEDS ORDERED: ACETAMINOPHEN 1000 MG/100 ML VIAL (NON FORMULARY) IVPB ONE (12:32)
[2021-07-30 13:00] LABS: BASO % 0.2 % (0-2.0); HEMATOCRIT 39.7 % (32.4-45.2); HEMOGLOBIN 13.3 GM/dL (10.7-15.3); LYMPH % 3.2 % (8-40); MCH 28.2 pg (25.7-33.7); MCHC 33.6 g/dl (32.0-36.0); MEAN CELL VOLUME 84.2 fl (80-96); MEAN PLT VOLUME 11.2 fl (7.5-11.1); NEUT % 89.6 % (42.8-82.8); PLATELET COUNT 71 10^3/uL (134-434); RBC 4.72 M/mm3 (3.60-5.2); RDW 13.7 % (11.6-15.6); WHITE BLOOD COUNT 6.7 K/mm3 (4.0-10.0)
[2021-07-30 13:25] LABS: CHLORIDE 106 mmol/L (98-107); SODIUM 139 mmol/L (136-145)
[2021-07-30 13:29] LABS: ANION GAP 8 MMOL/L (8-16); CALCIUM 8.7 mg/dL (8.5-10.1); CO2 24 mmol/L (21-32)
[2021-07-30 13:30] LABS: ALBUMIN 3.7 g/dl (3.4-5.0); BLOOD UREA NITROGEN 9.6 mg/dL (7-18)
[2021-07-30 13:33] LABS: CREATININE 0.8 mg/dL (0.55-1.3); SGOT/AST 12 U/L (15-37); SGPT/ALT 15 U/L (13-61)
[2021-07-30 13:34] LABS: BILIRUBIN,TOTAL 1.3 mg/dL (0.2-1); TOT PROT 7.2 g/dl (6.4-8.2)
[2021-07-30 13:35] LABS: ALK PHOS 69 U/L (45-117)
[2021-07-30 14:05] LABS: GLUCOSE,RANDOM 105 mg/dL (74-106)
[2021-07-30 14:41] LABS: EPI CELLS 23 /uL (0-25.1); HYALINE CASTS 5 /uL (0-3.1); URINE APPEARANCE CLEAR; URINE BACTERIA 340 /uL (0-1359); URINE BILIRUBIN NEGATIVE (NEGATIVE); URINE COLOR YELLOW; URINE GLUCOSE (UA) NEGATIVE (NEGATIVE); URINE KETONE NEGATIVE (NEGATIVE); URINE LEUK ESTERASE NEGATIVE (NEGATIVE); URINE NITRITE NEGATIVE (NEGATIVE); URINE PROTEIN 1+ (NEGATIVE); URINE RBC 10 /uL (0-23.9); URINE WBC 21 /uL (0-25.8)
[2021-07-30 15:51] VITALS: BP 98/56; PULSE 72; TEMP 98.1
== END 2021-07-30 17:06 | disposition home or self-care (01) ==
LOC: JER 10:50
PROC: 3E033NZ Introduction of Analgesics, Hypnotics, Sedatives into Peripheral Vein, Percutaneous Approach (ICD-10-PCS; principal; 2021-07-30)
DX: N39.0 Urinary tract infection, site not specified (principal); R68.83 Chills (without fever)
CPT/HCPCS: 36415; 76830-TC; 80053; 81003; 82550; 84484; 84703; 85025; 87040; 87086; 87491; 87591; 87804; 93005; 93010; 99284-25; C9803; J0131; U0003; U0005

== ENCOUNTER 2022-12-27 08:43 | Emergency (ER) | payer OTHER ==
[2022-12-27 08:51] VITALS: BP 102/64; PULSE 78; RESP 18; TEMP 97.9; BMI 21.9
[2022-12-27] MEDS ORDERED: DEXAMETHASONE SOD PHOSPHATE 10 MG/1 ML VIAL IVPUSH ONE (09:42)
[2022-12-27] MEDS ORDERED: ALBUTEROL SO4 2.5/IPRATROPIUM 0.5 INH SOL 3 ML VIAL.NEB. NEB ONE ×2 (09:47→09:48)
[2022-12-27] MEDS ORDERED: DEXAMETHASONE SOD PHOSPHATE 10 MG/1 ML VIAL ONE (09:48)
[2022-12-27] MEDS: RACEPINEPHRINE IH SOL 2.25% 11.25 MG/0.5 ML VIAL IH ONE ×2 (10:13→12:22)
[2022-12-27 10:14] LABS: BASO % 0.6 % (0-2.0); EOS % 4.1 % (0-4.5); HEMATOCRIT 36.7 % (32.4-45.2); HEMOGLOBIN 12.1 GM/dL (10.7-15.3); LYMPH % 15.8 % (8-40); MCH 28.3 pg (25.7-33.7); MCHC 32.9 g/dl (32.0-36.0); MEAN CELL VOLUME 86.1 fl (80-96); MEAN PLT VOLUME 11.7 fl (7.5-11.1); MONO % 7.8 % (3.8-10.2); NEUT % 71.7 % (42.8-82.8); PLATELET COUNT 104 10^3/uL (134-434); RBC 4.26 M/mm3 (3.60-5.2); RDW 13.1 % (11.6-15.6); WHITE BLOOD COUNT 4.6 K/mm3 (4.0-10.0)
[2022-12-27 10:33] LABS: ALBUMIN 3.7 g/dl (3.4-5.0)
[2022-12-27 10:34] LABS: BLOOD UREA NITROGEN 17.6 mg/dL (7-18); CALCIUM 8.8 mg/dL (8.5-10.1)
[2022-12-27 10:37] LABS: CREATININE 0.7 mg/dL (0.55-1.3)
[2022-12-27 10:38] LABS: BILIRUBIN,TOTAL 0.3 mg/dL (0.2-1); TOT PROT 6.6 g/dl (6.4-8.2)
[2022-12-27] MEDS: ALBUTEROL SO4 2.5/IPRATROPIUM 0.5 INH SOL 3 ML VIAL.NEB. NEB SCH ×2 (11:11→13:10)
[2022-12-27] MEDS ORDERED: KETOROLAC TROMETHAMINE 15 MG/ML VIAL ONE (12:22)
[2022-12-27] MEDS: KETOROLAC TROMETHAMINE 15 MG/ML VIAL IVPUSH ONE ×2 (13:10→13:14)
== END 2022-12-27 16:36 | disposition home or self-care (01) ==
LOC: JERFT 08:43
PROC: 3E0F7GC Introduction of Other Therapeutic Substance into Respiratory Tract, Via Natural or Artificial Opening (ICD-10-PCS; principal; 2022-12-27)
PROC: 3E0F7GC Introduction of Other Therapeutic Substance into Respiratory Tract, Via Natural or Artificial Opening (ICD-10-PCS; 2022-12-27)
PROC: 3E033GC Introduction of Other Therapeutic Substance into Peripheral Vein, Percutaneous Approach (ICD-10-PCS; 2022-12-27)
DX: J45.909 Unspecified asthma, uncomplicated (principal); J02.9 Acute pharyngitis, unspecified; E04.1 Nontoxic single thyroid nodule
CPT/HCPCS: 36415; 70491-TC; 71046-TC-FY; 80053; 84703; 85025; 87040; 99285-25; J1100; Q9967

== ENCOUNTER 2023-01-23 16:11 | Emergency (ER) | payer OTHER ==
[2023-01-23 16:18] VITALS: BP 115/76; PULSE 76; RESP 18; TEMP 98; BMI 21.8
[2023-01-23] MEDS ORDERED: ACETAMINOPHEN 325 MG TABLET (FP) PO ONE (16:33)
[2023-01-23] MEDS ORDERED: ACETAMINOPHEN 325 MG TABLET (FP) ONE (16:44)
== END 2023-01-23 17:38 | disposition home or self-care (01) ==
LOC: JERFT 16:11
DX: S40.012A Contusion of left shoulder, initial encounter (principal); M25.512 Pain in left shoulder; R20.2 Paresthesia of skin; V49.40XA Driver injured in collision with unspecified motor vehicles in traffic accident, initial encounter; Y93.I9 Activity, other involving external motion
CPT/HCPCS: 73030-TC-LT-FY; 99283-25

== ENCOUNTER 2023-06-22 11:43 | Emergency (ER) | payer OTHER ==
[2023-06-22 12:01] VITALS: BP 109/53; PULSE 85; RESP 16; TEMP 99.2; BMI 23.1
== END 2023-06-22 14:54 | disposition home or self-care (01) ==
LOC: JERFT 11:43
DX: R50.9 Fever, unspecified (principal); J02.9 Acute pharyngitis, unspecified; R09.81 Nasal congestion; Z20.822 Contact with and (suspected) exposure to COVID-19
CPT/HCPCS: 0241U-QW; 87651; 99283-25

== ENCOUNTER 2023-09-06 16:23 | Emergency (ER) | payer OTHER ==
[2023-09-06 16:39] VITALS: BMI 24.0
[2023-09-06] MEDS ORDERED: ACETAMINOPHEN 500 MG TABLET (FP) PO ONE (17:21)
[2023-09-06] MEDS ORDERED: ACETAMINOPHEN 325 MG TABLET (FP) ONE (17:59)
[2023-09-06] MEDS ORDERED: SODIUM CHLORIDE 0.9% 1000 ML INFUS.BAG IV ONE (18:09)
[2023-09-06 18:36] LABS: BASO % 0.7 % (0-2.0); EOS % 1.2 % (0-4.5); HEMOGLOBIN 13.6 GM/dL (10.7-15.3); LYMPH % 18.1 % (8-40); MCH 28.1 pg (25.7-33.7); MCHC 33.2 g/dl (32.0-36.0); MEAN CELL VOLUME 84.6 fl (80-96); MEAN PLT VOLUME 10.9 fl (7.5-11.1); MONO % 7.8 % (3.8-10.2); NEUT % 72.2 % (42.8-82.8); PLATELET COUNT 125 10^3/uL (134-434); RBC 4.84 M/mm3 (3.60-5.2); RDW 13.4 % (11.6-15.6); WHITE BLOOD COUNT 6.7 K/mm3 (4.0-10.0)
[2023-09-06 18:45] LABS: POTASSIUM 4.3 mmol/L (3.5-5.1)
[2023-09-06 18:46] LABS: CALCIUM 9.3 mg/dL (8.5-10.1)
[2023-09-06 18:47] LABS: ALBUMIN 4.2 g/dl (3.4-5.0); BLOOD UREA NITROGEN 11.1 mg/dL (7-18)
[2023-09-06 18:50] LABS: CREATININE 0.8 mg/dL (0.55-1.3)
[2023-09-06 18:52] LABS: BILIRUBIN,TOTAL 0.5 mg/dL (0.2-1); TOT PROT 7.5 g/dl (6.4-8.2)
[2023-09-06 18:53] LABS: INR 1.1 (0.83-1.09); PROTHROMBIN TIME (PATIENT) 12.8 SEC (9.7-13.0)
[2023-09-06 18:56] LABS: ACTIVATED PTT 27.1 SECONDS (25.2-36.5)
[2023-09-06] MEDS ORDERED: oxyCODONE HCL 5 MG TABLET PO ONE (20:49)
[2023-09-06] MEDS ORDERED: oxyCODONE HCL 5 MG TABLET ONE (20:54)
[2023-09-06 22:02] LABS: PH,URINE 5.5 (5.0-8.0); URINE APPEARANCE CLEAR; URINE BILIRUBIN NEGATIVE (NEGATIVE); URINE COLOR YELLOW; URINE GLUCOSE (UA) NEGATIVE (NEGATIVE); URINE KETONE 15 mg/dl (NEGATIVE)
[2023-09-06 22:03] LABS: URINE LEUK ESTERASE NEGATIVE (NEGATIVE); URINE NITRITE NEGATIVE (NEGATIVE); URINE PROTEIN NEGATIVE (NEGATIVE)
[2023-09-06 22:48] VITALS: BP 91/50; PULSE 75; RESP 20; TEMP 97.7
== END 2023-09-06 22:49 | disposition home or self-care (01) ==
LOC: JER 16:23
DX: S30.810A Abrasion of lower back and pelvis, initial encounter (principal); S50.02XA Contusion of left elbow, initial encounter; M25.512 Pain in left shoulder; M54.9 Dorsalgia, unspecified; M25.522 Pain in left elbow; R07.89 Other chest pain; W01.0XXA Fall on same level from slipping, tripping and stumbling without subsequent striking against object, initial encounter; Y93.01 Activity, walking, marching and hiking; Y92.481 Parking lot as the place of occurrence of the external cause
CPT/HCPCS: 36415; 70450-TC; 71046-TC-FY; 71260-TC; 72125-TC; 72128-TC; 72131-TC; 73030-TC-LT-FY; 73070-TC-LT-FY; 74177-TC; 80053; 81003; 84703; 85025; 85610; 85730; 86850; 86900; 86901; 93005; 93010; 99285-25; Q9967

== ENCOUNTER 2024-08-23 10:30 | Emergency (ER) | payer OTHER ==
[2024-08-23 10:55] VITALS: BP 102/69; PULSE 95; RESP 17; TEMP 98.7; BMI 22.3
[2024-08-23] MEDS ORDERED: ACETAMINOPHEN 500 MG TABLET (FP) ONE (11:54)
[2024-08-23] MEDS ORDERED: ALBUTEROL SO4 2.5/IPRATROPIUM 0.5 INH SOL 3 ML VIAL.NEB. NEB ONE ×2 (12:00→12:57)
[2024-08-23] MEDS: ALBUTEROL SO4 2.5/IPRATROPIUM 0.5 INH SOL 3 ML VIAL.NEB. NEB ONE ×2 (12:06→13:00)
[2024-08-23] MEDS: ACETAMINOPHEN 500 MG TABLET (FP) PO ONE (12:07)
[2024-08-23 12:56] LABS: THROAT:GRP A STREP NOT DETECTED (NOTDETECTED)
[2024-08-23 13:52] LABS: URINE APPEARANCE CLEAR; URINE BILIRUBIN NEGATIVE (NEGATIVE); URINE COLOR YELLOW; URINE GLUCOSE (UA) NEGATIVE (NEGATIVE); URINE KETONE 2+ (NEGATIVE); URINE LEUK ESTERASE NEGATIVE (NEGATIVE); URINE NITRITE NEGATIVE (NEGATIVE); URINE PROTEIN TRACE (NEGATIVE)
[2024-08-23 15:32] LABS: HIV INTERPRETATION NEGATIVE (NEGATIVE)
== END 2024-08-23 15:40 | disposition home or self-care (01) ==
LOC: JERFT 10:30
PROC: 3E0F7GC Introduction of Other Therapeutic Substance into Respiratory Tract, Via Natural or Artificial Opening (ICD-10-PCS; principal; 2024-08-23)
PROC: 3E0F7GC Introduction of Other Therapeutic Substance into Respiratory Tract, Via Natural or Artificial Opening (ICD-10-PCS; 2024-08-23)
DX: R51.9 Headache, unspecified (principal); M79.10 Myalgia, unspecified site; J02.9 Acute pharyngitis, unspecified; R06.2 Wheezing; R68.83 Chills (without fever); B34.9 Viral infection, unspecified; Z20.822 Contact with and (suspected) exposure to COVID-19
CPT/HCPCS: 0241U-QW; 36415; 71046-TC-FY; 81003; 86803; 87389; 87651; 99284-25

== ENCOUNTER 2025-02-15 09:40 | Emergency (ER) | payer OTHER ==
[2025-02-15 09:48] VITALS: BP 98/79; PULSE 87; RESP 18; TEMP 98.6; BMI 23.6
[2025-02-15] MEDS ORDERED: AMOX TR/POT CLAV 875MG/125MG TABLETS (FP) ONE (10:31)
[2025-02-15] MEDS ORDERED: DIPHTH,PERTUSS(ACELL),TET 0.5 ML DISP.SYRIN IM ONE (10:31)
[2025-02-15] MEDS ORDERED: BACITRACIN ZINC 15 GM TUBE TOPICAL OINTMENT ONE (10:31)
[2025-02-15] MEDS ORDERED: IBUPROFEN 600 MG TABLET (FP) PO ONE (10:31)
[2025-02-15] MEDS: IBUPROFEN 600 MG TABLET (FP) PO ONE (10:35)
[2025-02-15] MEDS: AMOX TR/POT CLAV 875MG/125MG TABLETS (FP) PO ONE (10:35)
[2025-02-15] MEDS: DIPHTH,PERTUSS(ACELL),TET 0.5 ML DISP.SYRIN IM ONE (10:38)
[2025-02-15] MEDS: BACITRACIN ZINC 15 GM TUBE TOPICAL OINTMENT TP ONE (10:40)
[2025-02-15 13:16] LABS: HIV INTERPRETATION NEGATIVE (NEGATIVE)
[2025-02-15 13:17] LABS: HCV DIAGNOSTIC IN-HOUSE W/RFLX NON-REACTIVE (NONREACTIVE)
== END 2025-02-15 10:50 | disposition home or self-care (01) ==
LOC: JERFT 09:40
PROC: 3E0234Z Introduction of Serum, Toxoid and Vaccine into Muscle, Percutaneous Approach (ICD-10-PCS; principal; 2025-02-15)
DX: S60.410A Abrasion of right index finger, initial encounter (principal); S60.412A Abrasion of right middle finger, initial encounter; S51.851A Open bite of right forearm, initial encounter; W50.3XXA Accidental bite by another person, initial encounter; Y99.0 Civilian activity done for income or pay
CPT/HCPCS: 36415; 86803; 87389; 90715; 99284-25

== ENCOUNTER 2025-03-19 20:51 | Emergency (ER) | payer OTHER ==
[2025-03-19 20:56] VITALS: BMI 22.4
[2025-03-19] MEDS ORDERED: ACETAMINOPHEN INJECTION 100 ML ONE (21:57)
[2025-03-19] MEDS: ACETAMINOPHEN 1000 MG/100 ML BAG IVPB ONE (22:05)
[2025-03-19 22:15] LABS: ABSOLUTE IMMATURE GRANULOCYTES 0.01 x10^3/uL (0.0-0.031); BASOPHILS # 0.04 x10^3/uL (0.01-0.08); EOSINOPHIL % 6.6 % (0.7-5.8); EOSINOPHILS # 0.35 x10^3/uL (0.04-0.36); HEMOGLOBIN 12.6 g/dL (11.2-15.7); MCHC 32.3 g/dl (32.2-35.5); MEAN PLT VOLUME 12.7 fl (9.4-12.3); MONOCYTE # 0.44 x10^3/uL (0.24-0.86); MONOCYTE % 8.3 % (4.7-12.5); PLATELET COUNT 137 x10^3/uL (182-369); RDW 13.2 % (12.1-16.8)
[2025-03-19 22:39] LABS: ALBUMIN 3.9 g/dl (3.4-5.0); BILIRUBIN,TOTAL 0.4 mg/dL (0.2-1); BLOOD UREA NITROGEN 15.4 mg/dL (7-18); CALCIUM 9.3 mg/dL (8.5-10.1); CREATININE 0.9 mg/dL (0.55-1.3); TOT PROT 7.1 g/dl (6.4-8.2)
[2025-03-19 22:55] LABS: PH,URINE 5.5 (5.0-8.0); URINE APPEARANCE CLEAR; URINE BILIRUBIN NEGATIVE (NEGATIVE); URINE COLOR YELLOW; URINE GLUCOSE (UA) NEGATIVE (NEGATIVE); URINE KETONE TRACE (NEGATIVE); URINE LEUK ESTERASE NEGATIVE (NEGATIVE); URINE NITRITE NEGATIVE (NEGATIVE); URINE PROTEIN NEGATIVE (NEGATIVE)
[2025-03-19 23:43] LABS: HIV INTERPRETATION NEGATIVE (NEGATIVE)
[2025-03-20 01:18] LABS: HCV DIAGNOSTIC IN-HOUSE W/RFLX NON-REACTIVE (NONREACTIVE)
[2025-03-20 01:51] VITALS: BP 102/78; PULSE 80; RESP 16; TEMP 98.2
== END 2025-03-20 01:53 | disposition home or self-care (01) ==
LOC: JER 20:51
PROC: 3E033NZ Introduction of Analgesics, Hypnotics, Sedatives into Peripheral Vein, Percutaneous Approach (ICD-10-PCS; principal; 2025-03-19)
DX: D25.2 Subserosal leiomyoma of uterus (principal); N93.9 Abnormal uterine and vaginal bleeding, unspecified; R10.30 Lower abdominal pain, unspecified; R53.83 Other fatigue; R51.9 Headache, unspecified
CPT/HCPCS: 36415; 76830-TC; 80053; 81003; 84703; 85025; 86803; 86850; 86900; 86901; 87070; 87086; 87205; 87389; 87491; 87591; 87661; 96374; 99285-25